=== PATIENT | male | born 1970 | race Two or more races ===

== ENCOUNTER 2024-09-13 13:21 | Emergency (ER) | payer MEDICAID ==
[~2024-09-13] VITALS: Ht 175.3 cm; Wt 124.0 kg
[2024-09-13] MEDS ORDERED: METH4PAK PO (15:16)
[2024-09-13] MEDS ORDERED: TRAM50TA2 PO (15:16)
[2024-09-13 15:17] VITALS: BP 130/90; PULSE 90; RESP 18; TEMP 99; O2SAT 97
--- NOTE | 2024-09-13 15:17 | ED.PDOC ---
Musculoskeletal HPI Comments 54 year old male presents for atraumatic left foot pain Located to the anterior tibial region Started 4 wks ago Pain with ambulation Rated as moderate Chief Complaint: Lower Extremity Time Seen by MD: 14:28 Primary Care Provider: JERROD Reviewed Notes: Nurses Notes, Medications, Allergies Home Meds Active Scripts Tramadol Hcl (Tramadol Hcl) 50 Mg Tab, 50 MG PO Q8HP PRN for 7 Days, #21 TAB 0 Refills Prov:NATHALIE OSCAR [employer] 09/13/24 Methylprednisolone (Medrol Dosepak) 4 Mg Zeb, 4 MG PO UD, #21 TAB 0 Refills UAD Prov:NATHALIE OSCAR [employer] 09/13/24 Information Source: Patient Mode of Arrival: Ambulatory All Other Systems: Reviewed and Negative (Per HPI) Physical Exam General Appearance: No Apparent Distress, Normal HEENT: Normal ENT Inspection, Pharynx Normal, TMs Normal Neck: Full Range of Motion, Non-Tender, Normal, Normal Inspection Respiratory: Chest Non-Tender, Lungs Clear, No Accessory Muscle Use, No Respiratory Distress, Normal Breath Sounds Cardiovascular: No Edema, No JVD, No Murmur, No Gallop, Normal Peripheral Pulses, Regular Rate/Rhythm Breast Exam: Deferred Gastrointestinal: No Organomegaly, Non Tender, No Pulsatile Mass, Normal Bowel Sounds, Soft Genitalia: Deferred Pelvic: Deferred Rectal: Deferred Extremities: No calf tenderness, Normal capillary refill, Normal inspection, Normal range of motion, Non-tender, No pedal edema Musculoskeletal : Apperance: Normal Neurologic: Alert, support service tech II-XII nml as Tested, No Motor Deficits, Normal Affect, Normal Mood, No Sensory Deficits Cerebellar Function: Normal Reflexes: Normal Skin: Dry, Normal Color, Warm Lymphatic: No Adenopathy Was a procedure done? Was a procedure done?: No Images 1 - localized ttp. Full ROM. DP 2+ Differential Diagnosis EXT Differential Diagnosis: Sprain X-Ray, Labs, Meds, VS Vital Signs Date Time Temp Pulse Resp B/P (MAP) Pulse Ox O2 Delivery O2 Flow Rate FiO2 09/13/24 15:17 99.0 90 18 130/90 (103) 97 99.0 09/13/24 15:17 90 18 97 Room Air 09/13/24 13:36 99.1 90 18 134/89 (104) 96 X-Ray, Labs, Meds, VS Comment Findings consistent with tendinitis. Conservative treatment for now. Considered but no indication for x-ray at this time Patient is stable for discharge at this time. External notes reviewed. Test results and diagnostic imaging interpreted. All diagnostic findings, discharge care, education and instructions provided Follow-up with PCP in 2 to 3 days Patient verbalized understanding and agreed to treatment plan Vital signs stable, afebrile, no acute distress noted Patient ambulatory with strong steady gait Advised to return precautions for any new or worsening symptoms, return to ER immediately for re-evaluation Patient is aware that the purpose of this visit was for an acute medical emergency requiring emergent stabilization. Chronic conditions, including malignancies have not been ruled out. Patient is instructed to follow up with PCP as directed and discharge instructions for continued care and workup. If unable to arrange follow-up, patient is to return to the emergency department for reassessment. Patient (parent or legal guardian if applicable) was given verbal and written discharge instructions and acknowledges understanding. Time of 1ST Reevaluation: 15:00 Reevaluation 1ST: Improved Patient Education/Counseling: Diagnosis, Treatment Family Education/Counseling: Diagnosis, Treatment Departure 1 Departure Time of Disposition: 15:14 Impression: Primary Impression: Anterior tibial tendonitis Qualified Codes: M76.812 - Anterior tibial syndrome, left leg Disposition: HOME / SELF CARE / HOMELESS Condition: Stable e-Prescriptions Tramadol Hcl (Tramadol Hcl) 50 Mg Tab 50 MG PO Q8HP PRN for 7 Days, #21 TAB 0 Refills Prov: NATHALIE OSCAR NP 09/13/24 Methylprednisolone (Medrol Dosepak) 4 Mg Zeb 4 MG PO UD, #21 TAB 0 Refills UAD Prov: NATHALIE OSCAR NP 09/13/24 Critical Care Note Critical Care Time?: No Stability Stability form required: No Heart Score Heart Score: Heart Score Response (Comments) Value History N/A 0 EKG N/A 0 Age N/A 0 Risk Factors N/A 0 Troponin N/A 0 Total 0 NATHALIE OSCAR NP Sep 13, 2024 15:16
== END 2024-09-13 15:47 | disposition home or self-care (01) ==
LOC: ER 13:21
DX: M76.812 Anterior tibial syndrome, left leg (principal); Z79.899 Other long term (current) drug therapy